=== PATIENT | male | born 2000 | race African-American/Black ===

== ENCOUNTER 2022-08-20 20:36 | Emergency (ER) | payer OTHER ==
--- NOTE | 2022-08-20 22:32 | XRAY Report ---
PROCEDURE: Neck Soft Tissue INDICATIONS: FB (bone) in throat TECHNIQUE: 2 views of the neck were acquired. COMPARISON: None. FINDINGS: Airway: The airway appears patent. Soft tissues: No definite radiopaque foreign body identified. Prevertebral soft tissues are normal i n thickness. The epiglottis and aryepiglottic folds appear normal. No soft tissue gas. Bones: No suspicious bony lesions. Visualized cervical spine is normally aligned. IMPRESSION: 1. No definite opaque foreign body identified. Reviewed by: Adolph Magallon MD on 08/20/2022 10:31 PM PDT Approved by: Adolph Magallon MD on 08/20/2022 10:31 PM PDT Station ID: [id number]
[2022-08-20 23:24] VITALS: BP 135/95
--- NOTE | 2022-08-21 00:35 | ED Physician Documentation ---
History of Present Illness - Stated complaint Stated Complaint: OBJECT IN THROAT - Chief complaint Chief Complaint: Heent - History obtained from History obtained from: Patient - Additonal information Additional information: The patient comes to the emergency department chief complaint of foreign body sensation in his throat after eating chicken. He is concerned that he might of swallowed a chicken bone and it got stuck. He has been able to swallow his saliva but it feels like something is in his right throat. No difficulty breathing. No abdominal pain or chest pain. No other complaints at this time. PD PAST MEDICAL HISTORY - Allergies Allergies/Adverse Reactions: Allergies Allergy/AdvReac Type Severity Reaction Status Date / Time No Known Drug Allergies Allergy Verified 08/20/22 20:43 PD ED PE NORMAL - Vitals Vital signs reviewed: Yes - General General: Alert and oriented X 3, No acute distress, Well developed/nourished - HEENT HEENT: Atraumatic, PERRL, EOMI, Moist mucous membranes - Neck Neck: Supple, no meningeal sign - Cardiac Cardiac: RRR, No murmur, Strong equal pulses - Respiratory Respiratory: No respiratory distress, Clear bilaterally - Abdomen Abdomen: Soft, Non tender, Non distended - Derm Derm: Normal color, Warm and dry, No rash - Extremities Extremities: No deformity - Neuro Neuro: Alert and oriented X 3 - Psych Psych: Normal mood, Normal affect Results - Vitals Vitals: Oxygen O2 Source Room air - Rads (name of study) Soft tissue neck XR Relevant Findings:: Final report received, See rad report (neg) PD Medical Decision Making - ED course Complexity details: reviewed results, re-evaluated patient, considered differential, d/w patient ED course: The pt actually reported feeling better by the time I evaluated him, and felt that his throat was starting to relax. He did not feel the FB sensation as much anymore. He had been sent for a soft tissue neck XR series, which was negative. I d/w pt that there is no evidence of a bone stuck in his throat at this time, and he is swallowing and handling his secretions well today. No further intervention is indicated at this time. We have discussed symptomatic management at home, as well as the usual indications for return. Departure - Departure Disposition: 01 Home, Self Care Clinical Impression: Globus pharyngeus Condition: Stable Instructions: ED Foreign Body Esophageal Rslv Comments: Your x-rays look good. There is no evidence of a bone or any other foreign body in your throat now. You are swallowing saliva and you are not gagging or vomiting or having difficulty breathing. You may have swallowed a bone while you were eating the chicken and it eventually went down. If so, the bone should be expected to pass with your stool without causing any further trouble. You may take ibuprofen and Tylenol for any discomfort in your throat. Drink plenty of fluids. Follow-up with your doctor as needed. Discharge Date/Time: 08/21/22 00:39
== END 2022-08-21 00:39 | disposition home or self-care (01) ==
LOC: ED 20:36
DX: F45.8 Other somatoform disorders (principal)
CPT/HCPCS: 99283